=== PATIENT | female | born 1960 | race Hispanic/Latino ===

== ENCOUNTER 2021-07-18 11:00 | Day surgery (SDC) | payer MEDICAID ==
[2021-07-16 11:18] VITALS: BP 145/95
[2021-07-16 13:58] LABS: BASOPHILS % (AUTO) 0.5 % (0.0-5.0); EOSINOPHILS % (AUTO) 3.9 % (0.0-8.0); HEMATOCRIT 40.1 % (36-48); LYMPHOCYTES % (AUTO) 28.5 % (21.0-51.0); MEAN CORPUSCULAR HEMOGLOBIN 29.9 pg (27.0-33.0); MEAN CORPUSCULAR HGB CONC 31.7 g/dL (32.0-36.0); MEAN CORPUSCULAR VOLUME 94.4 fL (79-99); MONOCYTES % (AUTO) 7.5 % (3.0-13.0); NEUTROPHILS % (AUTO) 59.3 % (40.0-77.0); PLATELET COUNT (AUTO) 214 K/uL (130-400); RED BLOOD CELL COUNT(AUTO) 4.25 MIL/uL (4.00-5.50); RED CELL DISTRIBUTION WIDTH 13.3 % (11.0-15.5); WHITE BLOOD COUNT (AUTO) 5.9 K/uL (4.8-10.8)
[2021-07-16 14:06] LABS: INR 0.98 (0.85-1.15); PROTHROMBIN TIME 10.7 SEC (9.6-11.6)
[2021-07-16 14:07] LABS: PARTIAL THROMBOPLASTIN TIME 26.3 SEC (26.3-35.5)
[2021-07-16 14:21] LABS: CREATININE 1.9 mg/dL (0.5-1.5); POTASSIUM 4.4 mmol/L (3.5-5.1)
[2021-07-18] VITALS (20 sets, daily range): BP systolic 119–199; BP diastolic 65–95
[~2021-07-18] VITALS: Ht 147.3 cm; Wt 87.6 kg
[~2021-07-18 11:00] MED LIST: 0.9%NACL 1000ML 1,000 ML IV SCH; AEC81 PO; ALBU90AE IH; CLON0.1T PO; CLOP75TA32 PO; EMPA1TAB7 PO; ESOM20CA31 PO; INSU100I24 SQ; ISOS30TA92 PO; LOSA50TA64 PO; METO25TA6 PO; NITR0.4T50 SL; PARO10TA71 PO; SEMA1PEN3 SQ; SIMV-43 PO
[2021-07-18] MEDS ORDERED: MIDAZOLAM HCL 1 MG/ML 2ML VIAL ONE (11:41)
[2021-07-18] MEDS ORDERED: FENTANYL CITRATE PF 50 MCG/1 ML 2ML VIAL ONE (11:41)
[2021-07-18] MEDS ORDERED: LIDOCAINE HCL 2% VISCOUS 15 ML UDCUP ONE (11:41)
[2021-07-18] MEDS ORDERED: FLUMAZENIL 0.1MG/1ML 5ML VIAL IV ONE (11:43)
[2021-07-18] MEDS ORDERED: NALOXONE HCL 0.4 MG/1 ML ML ONE (11:44)
== END 2021-07-18 14:45 | disposition home or self-care (01) ==
LOC: DAH 11:00
PROVIDERS: ATTEND Internal Medicine Cardiovascular Disease
DX: I42.9 Cardiomyopathy, unspecified (principal); I10 Essential (primary) hypertension; E78.5 Hyperlipidemia, unspecified; E11.319 Type 2 diabetes mellitus with unspecified diabetic retinopathy without macular edema; E03.9 Hypothyroidism, unspecified; G40.909 Epilepsy, unspecified, not intractable, without status epilepticus; M19.90 Unspecified osteoarthritis, unspecified site; M81.0 Age-related osteoporosis without current pathological fracture; Z86.73 Personal history of transient ischemic attack (TIA), and cerebral infarction without residual deficits; Z98.51 Tubal ligation status; Z79.4 Long term (current) use of insulin; Z79.01 Long term (current) use of anticoagulants; Z79.899 Other long term (current) drug therapy
CPT/HCPCS: 36415; 80048; 82948; 85025; 85610; 85730; 93313; A4215; A4216; A4221; A4222; A4223 ×3; A4606; A4615; A4663; J2250; J3010; J7030 ×2; J2310; J3490